=== PATIENT | female | born 1970 | race Caucasian/White ===

== ENCOUNTER 2016-06-15 22:02 | Emergency (ER) | payer SELFPAY ==
--- NOTE | 2016-06-15 22:13 | ER Document Report ---
ED Medical Screen (RME) - General Chief Complaint: Dog Bite Stated Complaint: DOG BITE LEFT ARM Time seen by provider: 22:10 Mode of Arrival: Ambulatory Information source: Patient Notes: 45-year-old female presents to ED for a dog bite to the left forearm. She states it was her dog when the dog's immunizations are all up-to-date. She is not sure of the date of her tetanus. Last menstrual period 05/25/2069. The dog bit her is chimaria eugeniaahua and miniature pincher mix. Has 2 deep lacerations to her forearm. And two superficial I have greeted and performed a rapid initial assessment of this patient. A comprehensive ED assessment and evaluation of the patient, analysis of test results and completion of medical decision making process will be conducted by an additional ED providers. - Related Data Allergies/Adverse Reactions: aspirin [Aspirin] Allergy (Verified 08/18/11 04:36) Past Medical History - Social History Frequency of alcohol use: Occasional Drug Abuse: None Family history: Malignancy Pulmonary Medical History: Denies: Hx Tuberculosis Neurological Medical History: Reports: Hx Migraine Renal/ Medical History: Denies: Hx Peritoneal Dialysis Musculoskeltal Medical History: Reports Hx Musculoskeletal Trauma Psychiatric Medical History: Reports: Hx Depression Traumatic Medical History: Reports: Hx Fractures Past Surgical History: Reports: Hx Orthopedic Surgery - ankle surgery - Immunizations Immunizations up to date: Yes Hx Diphtheria, Pertussis, Tetanus Vaccination: Yes
[2016-06-15 22:18] VITALS: BP 111/69
== END 2016-06-16 01:30 | disposition left against medical advice (07) ==
LOC: ER 22:02
DX: Z53.9 Procedure and treatment not carried out, unspecified reason (principal); S51.812A Laceration without foreign body of left forearm, initial encounter; W54.0XXA Bitten by dog, initial encounter